=== PATIENT | female | born 1995 | race American Indian/Alaskan Native ===

== ENCOUNTER 2019-12-28 23:10 | Emergency (ER) | payer SELFPAY ==
[2019-12-29] MEDS ORDERED: TETANUS,DIPH,PERTUSS(ACELL) VACCINE 0.5 ML SYRINGE IM ONE
[2019-12-29] MEDS ORDERED: HYDROcodone/ACETAMINOPHEN 5-325 MG TAB PO ONE
--- NOTE | 2019-12-29 01:05 | XRay Report ---
RIGHT FOOT 3 VIEWS 0012 INDICATION: kicked a door, right foot/ankle pain, lac to ankle COMPARISON: None available. FINDINGS: Moderate hallux valgus is seen. No fractures or dislocations are noted. What is probably a glass fragment is seen in the soft tissues dorsal to the talonavicular joint. This fragment measures 2.3 cm in length. RIGHT ANKLE 2 VIEWS 0010 INDICATION: kicked a door, right foot/ankle pain, lac to ankle COMPARISON: None available. FINDINGS: There is included as the lateral view appears to be the same lateral image as on the foot s eries and I do not have a separate lateral ankle view. Lateral soft tissue swelling is seen. The glass fragment noted on the foot images is again noted. No fractures or dislocations are seen. Signer Name: Dereck Bartlett MD Signed: 12/29/2019 1:01 AM Workstation Name: [id number]
[2019-12-29 01:55] VITALS: BP 122/79
[2019-12-29] MEDS ORDERED: LIDOCAINE (2%) 20 MG/1 ML VIAL 20 ML MDV INFILTRATI ONE (02:45)
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
[2019-12-29] MEDS ORDERED: IBUPROFEN 600 MG TAB PO ONE ×2 (03:19→03:20)
== END 2019-12-29 03:29 | disposition home or self-care (01) ==
LOC: ED 23:10
DX: S91.011A Laceration without foreign body, right ankle, initial encounter (principal); F41.9 Anxiety disorder, unspecified; Z79.1 Long term (current) use of non-steroidal anti-inflammatories (NSAID); Z79.899 Other long term (current) drug therapy; W22.03XA Walked into furniture, initial encounter; Y93.89 Activity, other specified; Y92.89 Other specified places as the place of occurrence of the external cause; Y99.8 Other external cause status
CPT/HCPCS: 90471; 90715